=== PATIENT | male | born 1980 | race Caucasian/White ===

== ENCOUNTER 2017-06-22 22:18 | Emergency (ER) | payer OTHER ==
[2017-06-22 22:56] VITALS: BP 134/79; PULSE 68; TEMP 98.8; BMI 31.6
--- NOTE | 2017-06-23 00:32 | PDOC ---
History of Present Illness - General History Source: Patient <Juma Zhou - Last Filed: 06/23/17 00:25> - General History Source: Patient Exam Limitations: No Limitations - History of Present Illness Initial Comments: 06/23/17 00:38 The patient is a 36 year old male, with no significant past medical history who presents to the emergency department with lower back pain for the past 2 days. Patient states he was lifting some trays at work. Patient is able to ambulate however denies any paresthesia, weakness, bladder or bowel incontinence. He denies chest pain, headache or dizziness. He denies fever, chills, abdominal pain, nausea, vomit, diarrhea or constipation. He denies dysuria, frequency, urgency or hematuria. Allergies: NKA Past surgical history: Jaw surgery Social history: None PCP: Italo <Zulay Randolph - Last Filed: 06/23/17 00:39> - General Chief Complaint: Pain Stated Complaint: BACK PAIN Time Seen by Provider: 06/23/17 00:22 Past History - Past Medical History Other medical history: Pt denies - Immunization History Immunization Up to Date: No - Suicide/Smoking/Psychosocial Hx Smoking History: Never smoked Have you smoked in the past 12 months: No Information on smoking cessation initiated: No Hx Alcohol Use: No Drug/Substance Use Hx: No Substance Use Type: Alcohol <Juma Zhou - Last Filed: 06/23/17 00:25> <Zulay Randolph - Last Filed: 06/23/17 00:39> - Past Medical History Allergies/Adverse Reactions: Allergies Allergy/AdvReac Type Severity Reaction Status Date / Time No Known Allergies Allergy Verified 06/22/17 22:54 Home Medications: Ambulatory Orders Amoxicillin - [Amoxicillin 500mg Capsule -] 500 mg PO TID #30 capsule 02/25/14 No Home Medications 0 dose .ROUTE UTDICT 02/25/14 Ciprofloxacin [Cipro -] 500 mg PO Q12H #14 tablet 01/20/16 Ibuprofen 800 mg PO TID #30 tablet 06/23/17 Methocarbamol [Robaxin -] 500 mg PO TID #30 tablet 06/23/17 Oxycodone HCl/Acetaminophen [Percocet 5-325 mg Tablet] 1 - 2 tab PO Q6H #20 tablet MDD 4 09/20/17 Review of Systems - Review of Systems Able to Perform ROS?: Yes Comments:: 06/23/17 00:38 GENERAL/CONSTITUTIONAL: No fever or chills. No weakness. HEAD, EYES, EARS, NOSE AND THROAT: No change in vision. No ear pain or discharge. No sore throat. GASTROINTESTINAL: No nausea, vomiting, diarrhea or constipation. GENITOURINARY: No dysuria, frequency, or change in urination. CARDIOVASCULAR: No chest pain or shortness of breath. RESPIRATORY: No cough, wheezing, or hemoptysis. MUSCULOSKELETAL: +Lower back pain. No joint or muscle swelling or pain. No neck. SKIN: No rash NEUROLOGIC: No headache, vertigo, loss of consciousness, or change in strength/ sensation. ENDOCRINE: No increased thirst. No abnormal weight change. HEMATOLOGIC/LYMPHATIC: No anemia, easy bleeding, or history of blood clots. ALLERGIC/IMMUNOLOGIC: No hives or skin allergy. <Zulay Randolph - Last Filed: 06/23/17 00:39> *Physical Exam - Vital Signs Last Vital Signs Temp Pulse Resp BP Pulse Ox 98.8 F 68 20 134/79 97 06/22/17 22:54 06/22/17 22:54 06/22/17 22:54 06/22/17 22:54 06/22/17 22:54 <Juma Zhou - Last Filed: 06/23/17 00:25> - Vital Signs Last Vital Signs Temp Pulse Resp BP Pulse Ox 98.8 F 68 20 134/79 97 06/22/17 22:54 06/22/17 22:54 06/22/17 22:54 06/22/17 22:54 06/22/17 22:54 - Physical Exam Comments: 06/23/17 00:38 GENERAL: Awake, alert, and fully oriented, in no acute distress HEAD: No signs of trauma EYES: PERRLA, EOMI, sclera anicteric, conjunctiva clear ENT: Auricles normal inspection, hearing grossly normal, nares patent, oropharynx clear without exudates. Moist mucosa NECK: Normal ROM, supple, no lymphadenopathy, JVD, or masses LUNGS: Breath sounds equal, clear to auscultation bilaterally. No wheezes, and no crackles HEART: Regular rate and rhythm, normal S1 and S2, no murmurs, rubs or gallops ABDOMEN: Soft, nontender, normoactive bowel sounds. No guarding, no rebound. No masses EXTREMITIES: Normal range of motion, no edema. No clubbing or cyanosis. No cords, erythema, or tenderness. NEUROLOGICAL: Cranial nerves II through XII grossly intact. Normal speech, normal gait. +Bilateral paraspinal tenderness/spasm. SKIN: Warm, Dry, normal turgor, no rashes or lesions noted. <Zulay Randolph - Last Filed: 06/23/17 00:39> Medical Decision Making - Medical Decision Making 06/23/17 00:33 Dr. Zhou: The scribe's documentation has been prepared under my direction and personally reviewed by me in its entirery. I confirm that the note above accurately reflects all work, treatment, procedures, and medical decision making performed by me. <Juma Zhou - Last Filed: 06/23/17 00:25> *DC/Admit/Observation/Transfer - Discharge Dispostion Admit: No <Juma Zhou - Last Filed: 06/23/17 00:25> - Attestations Scribe Attestion: 06/23/17 00:39 Documentation prepared by Zulay Randolph, acting as biomedical engineer for Juma Zhou DO. <Zulay Randolph - Last Filed: 06/23/17 00:39> Diagnosis at time of Disposition: Low back pain Qualifiers: Chronicity: acute Back pain laterality: bilateral Sciatica presence: without sciatica Qualified Code(s): M54.5 - Low back pain - Prescriptions Prescriptions: Ibuprofen 800 mg PO TID #30 tablet Oxycodone HCl/Acetaminophen [Percocet 5-325 mg Tablet] 1 - 2 tab PO Q6H #20 tablet MDD 4 Methocarbamol [Robaxin -] 500 mg PO TID #30 tablet - Referrals Referrals: Billy Puckett MD [Primary Care Provider] - - Patient Instructions Printed Discharge Instructions: DI for Low Back Pain Additional Instructions: Please take as directed. Take Ibuprofen and Robaxin together every 8 hours, Take Percocet when not driving or having any alcohol Print Language: PORTUGUESE - Post Discharge Activity Work/School Note: Back to Work
== END 2017-06-23 00:44 | disposition home or self-care (01) ==
LOC: JER 22:18
DX: M54.5 Low back pain (principal); X50.0XXA Overexertion from strenuous movement or load, initial encounter; Y93.G9 Activity, other involving cooking and grilling; Y92.511 Restaurant or cafe as the place of occurrence of the external cause; Y99.0 Civilian activity done for income or pay
CPT/HCPCS: 99281-25

== ENCOUNTER 2018-04-20 00:55 | Emergency (ER) | payer OTHER ==
[2018-04-20] MEDS ORDERED: ONDANSETRON *ODT* 4 MG TABLET SL ONE (02:02)
[2018-04-20] MEDS ORDERED: MAG HYDROX/AL HYDROX/SIMETH 30 ML UNIT-DOSE CUP PO ONE (02:02)
--- NOTE | 2018-04-20 02:02 | PDOC ---
History of Present Illness - General Stated Complaint: ABD PAIN Time Seen by Provider: 04/20/18 01:29 - History of Present Illness Initial Comments: 04/20/18 01:55 CHIEF COMPLAINT: Abdominal pain, diarrhea HISTORY OF PRESENT ILLNESS: 37 yo M with hx of HLD presents to ED with abdominal pain x 2 days with associated diarrhea and nausea but no vomiting. 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 Patient denies any fever or chills. PAST MEDICAL HISTORY: Denies past medical history FAMILY HISTORY: Denies SOCIAL HISTORY: Denies tobacco, alcohol, illicit drug use. SURGICAL HISTORY: Denies ALLERGIES: No known drug allergies REVIEW OF SYSTEMS General/Constitutional: Denies fever or chills. Denies weakness, weight change. HEENT: Denies change in vision. Denies ear pain or discharge. Denies sore throat. Cardiovascular: Denies chest pain or shortness of breath. Respiratory: Denies cough, wheezing, or hemoptysis. Gastrointestinal: Diarrhea x 3 days with generalized abdominal pain. Genitourinary: Denies dysuria, frequency, or change in urination. Musculoskeletal: Denies joint or muscle swelling or pain. Denies neck or back pain. Skin and breasts: Denies rash or easy bruising. PHYSICAL EXAM General Appearance: Well-appearing, appropriately dressed. No apparent distress. HEENT: EOMI, PERRLA, normal ENT inspection, normal voice, TMs normal, pharynx normal. No conjunctival pallor. No photophobia, scleral icterus. Neck: Supple. Trachea midline. No tenderness, rigidity, carotid bruit, stridor , lymphadenopathy, or thyromegaly. Respiratory/Chest: Lungs CTAB. No shortness of breath, chest tenderness, respiratory distress, accessory muscle use. No crackles, rales, rhonchi, stridor , wheezing, dullness Cardiovascular: RRR. S1, S2. Gastrointestinal/Abdominal: Mild diffuse tenderness to abdomen, no rebound, no guarding. Normal bowel sounds. Abdomen soft, non-distended. No organomegaly, pulsatile mass, guarding, hernia, hepatomegaly, splenomegaly. Musculoskeletal/Extremities: Normal inspection. FROM of all extremities, normal capillary refill. Pelvis Stable. No CVA tenderness. No tenderness to extremities, pedal edema, swelling, erythema or deformity. Integumentary: Appropriate color, dry, warm. 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 Fully oriented, alert. Appropriate mood/affect. Motor strength 5/5. No appreciable EOM palsy, facial droop or sensory deficit. Past History - Past Medical History Allergies/Adverse Reactions: Allergies Allergy/AdvReac Type Severity Reaction Status Date / Time No Known Allergies Allergy Verified 06/22/17 22:54 Home Medications: Ambulatory Orders Amoxicillin - [Amoxicillin 500mg Capsule -] 500 mg PO TID #30 capsule 02/25/14 No Home Medications 0 dose .ROUTE UTDICT 02/25/14 Ciprofloxacin [Cipro -] 500 mg PO Q12H #14 tablet 01/20/16 Ibuprofen 800 mg PO TID #30 tablet 06/23/17 Methocarbamol [Robaxin -] 500 mg PO TID #30 tablet 06/23/17 Oxycodone HCl/Acetaminophen [Percocet 5-325 mg Tablet] 1 - 2 tab PO Q6H #20 tablet MDD 4 06/23/17 Famotidine [Pepcid] 20 mg PO DAILY #10 tablet 04/20/18 Ondansetron [Zofran *Odt*] 8 mg SL TID PRN #12 od.tablet 04/20/18 - Immunization History Immunization Up to Date: No - Suicide/Smoking/Psychosocial Hx Smoking History: Never smoked Have you smoked in the past 12 months: No Hx Alcohol Use: No Drug/Substance Use Hx: No Substance Use Type: Alcohol ED Treatment Course - LABORATORY CBC & Chemistry Diagram: 04/20/18 01:50 04/20/18 01:50 Medical Decision Making - Medical Decision Making 04/20/18 03:42 37 yo M with hx of HLD presents to ED with abdominal pain x 2 days with associated diarrhea and nausea but no vomiting. -labs -Maalox, Zofran Patient reassessed after administration of meds; at this time he states "I think my stomach feels more relaxed now" and states he is ready to go home. Advised pt to f/u with PCP within the next week; patient verbalized understanding and agrees to plan. *DC/Admit/Observation/Transfer Diagnosis at time of Disposition: Gastroenteritis - Discharge Dispostion Disposition: HOME Condition at time of disposition: Stable Decision to Admit order: No - Prescriptions Prescriptions: Famotidine [Pepcid] 20 mg PO DAILY #10 tablet Ondansetron [Zofran *Odt*] 8 mg SL TID PRN #12 od.tablet PRN Reason: Nausea And/Or Vomiting - Referrals Referrals: Billy Puckett MD [Primary Care Provider] - - Patient Instructions Printed Discharge Instructions: DI for Viral Gastroenteritis -- Adult, Gastroenteritis Diet Additional Instructions: Drink plenty of fluids. Please take medications as prescribed and follow up with your primary care doctor within the next week. If you develop fever, persistent vomiting or diarrhea, or any new or worsening symptoms, please return to the ER. Print Language: INDONESIAN - Post Discharge Activity
[2018-04-20 02:06] LABS: BASO % 0.5 % (0-2.0); EOS % 1.3 % (0-4.5); HEMATOCRIT 41.5 % (35.4-49); HEMOGLOBIN 14.2 GM/dL (11.7-16.9); MCH 30.7 pg (25.7-33.7); MCHC 34.2 g/dl (32.0-35.9); MEAN CELL VOLUME 89.6 fl (80-96); MEAN PLT VOLUME 7.7 fl (7.5-11.1); MONO % 10.1 % (3.8-10.2); NEUT % 71.1 % (42.8-82.8); PLATELET COUNT 284 K/MM3 (134-434); RBC 4.64 M/mm3 (4.00-5.60); RDW 13.5 % (11.9-15.9); WHITE BLOOD COUNT 8.1 K/mm3 (4.0-10.0)
--- NOTE | 2018-04-20 02:15 | PDOC ---
ED Treatment Course - LABORATORY CBC & Chemistry Diagram: 04/20/18 01:50 04/20/18 01:50 Medical Decision Making - Medical Decision Making 04/20/18 02:15 agree with care from ROLANDO Vee *DC/Admit/Observation/Transfer Diagnosis at time of Disposition: Gastroenteritis - Discharge Dispostion Disposition: HOME Condition at time of disposition: Stable - Prescriptions Prescriptions: Famotidine [Pepcid] 20 mg PO DAILY #10 tablet Ondansetron [Zofran *Odt*] 8 mg SL TID PRN #12 od.tablet PRN Reason: Nausea And/Or Vomiting - Referrals Referrals: Billy Puckett MD [Primary Care Provider] - - Patient Instructions Printed Discharge Instructions: DI for Viral Gastroenteritis -- Adult, Gastroenteritis Diet Additional Instructions: Drink plenty of fluids. Please take medications as prescribed and follow up with your primary care doctor within the next week. If you develop fever, persistent vomiting or diarrhea, or any new or worsening symptoms, please return to the ER. Print Language: WOLOF - Post Discharge Activity
[2018-04-20 02:21] LABS: ALBUMIN 3.8 g/dl (3.4-5.0); ANION GAP 8 (8-16); BLOOD UREA NITROGEN 15 mg/dL (7-18); CALCIUM 8.6 mg/dL (8.5-10.1); CHLORIDE 103 mmol/L (98-107); CO2 25 mmol/L (21-32); CREATININE 0.9 mg/dL (0.7-1.3); GLUCOSE,RANDOM 96 mg/dL (74-106); POTASSIUM 3.8 mmol/L (3.5-5.1); SGOT/AST 19 U/L (15-37); SGPT/ALT 34 U/L (12-78); SODIUM 136 mmol/L (136-145)
[2018-04-20 02:24] LABS: ALK PHOS 132 U/L (45-117); BILIRUBIN,TOTAL 0.4 mg/dL (0.2-1.0)
[2018-04-20 02:25] LABS: TOT PROT 7.4 g/dl (6.4-8.2)
[2018-04-20] MEDS ORDERED: ONDANSETRON *ODT* 4 MG TABLET ONE (02:57)
[2018-04-20] MEDS ORDERED: MAG HYDROX/AL HYDROX/SIMETH 30 ML UNIT-DOSE CUP ONE (02:58)
[2018-04-20 03:12] VITALS: BP 129/87; PULSE 85; TEMP 98.7; BMI 28.3
== END 2018-04-20 04:00 | disposition home or self-care (01) ==
LOC: JER 00:55
DX: K52.9 Noninfective gastroenteritis and colitis, unspecified (principal)
CPT/HCPCS: 36415; 80053; 83690; 85025; 99281-25; Q0162

== ENCOUNTER 2023-10-28 18:31 | Emergency (ER) | payer OTHER ==
[2023-10-28 18:42] VITALS: BMI 29.9
[2023-10-28] MEDS ORDERED: ACETAMINOPHEN 500 MG TABLET (FP) ONE (19:33)
[2023-10-28] MEDS ORDERED: DIPHTH,PERTUSS(ACELL),TET 0.5 ML DISP.SYRIN IM ONE (19:33)
[2023-10-28] MEDS: DIPHTH,PERTUSS(ACELL),TET 0.5 ML DISP.SYRIN IM ONE (19:38)
[2023-10-28] MEDS: ACETAMINOPHEN 500 MG TABLET (FP) PO ONE (19:38)
[2023-10-28 22:56] VITALS: BP 111/66; PULSE 67; RESP 16; TEMP 98.3
== END 2023-10-28 23:55 | disposition short-term general hospital (02) ==
LOC: JER 18:31
PROC: 3E0234Z Introduction of Serum, Toxoid and Vaccine into Muscle, Percutaneous Approach (ICD-10-PCS; principal; 2023-10-28)
DX: S09.90XA Unspecified injury of head, initial encounter (principal); H53.8 Other visual disturbances; W01.198A Fall on same level from slipping, tripping and stumbling with subsequent striking against other object, initial encounter; Y92.9 Unspecified place or not applicable
CPT/HCPCS: 70450-TC; 70480-TC; 90471; 90715; 99285-25